=== PATIENT | female | born 2000 | race Two or more races ===

== ENCOUNTER 2025-03-10 06:40 | Emergency (ER) | payer OTHER, SELFPAY ==
[2025-03-10 06:42] VITALS: BMI 24.0
[2025-03-10 06:48] VITALS: BP 140/96; PULSE 73; RESP 16; TEMP 36.8; O2SAT 100
--- NOTE | 2025-03-10 06:56 | XR_ITS ---
Examination: CT brain head without contrast. 2-D sagittal coronal reconstructions Date and time of exam:March 10, 2025 0710 hours INDICATIONS: Onset of headache blurred vision beginning 2 hours ago CTDI: vol (mGy):47.9 DLP: (mGycm):879 Technique: Multiple CT axial sections of the brain have been obtained, 5 mm slice thickness. Contrast has not been administered. 2-D sagittal, coronal reconstructions have been obtained Low dose protocols were performed. One or more of the following dose reduction techniques were used; automated exposure control, adjustment of the mA and/or KV according to patient size, use of iterative reconstruction technique. Findings: No significant ventricular enlargement. Intra-axial or extra-axial hemorrhage density is not seen. No mass effect or midline shift Basal cisterns are not remarkable. Fourth ventricle is midline. Cranial vault intact. Impression: Negative for acute hemorrhage, mass effect or midline shift Advise clinical correlation and follow up accordingly
--- NOTE | 2025-03-10 07:50 | EDNOTE_ITS ---
ED Eye Problem RME/HPI General Chief complaint: Eye Problems Stated complaint: BLURRED VISION IN LEFT EYE Time Seen by Provider: 03/10/25 06:56 Arrival date/time: 03/10/25 06:40 24-year-old female presents emergency department today for an episode of blurry vision last night which has resolved spontaneously, patient reports no recent injury. Patient did report she had a headache yesterday which she reports was mild. Patient reports no fever no shortness of breath no disturbances in vision at this time Limitations: no limitations Related Data Previous Rx's ?Medication ?Instructions ?Recorded Amox Tr/Potassium Clavulanate 5 ml PO TID #150 mL 10/22 04/03 (Augmentin 250-62.5 Suspen) tramadol 50 mg tablet 50 mg PO BID PRN pain #15 ta bs 04/08/22 Allergies Allergy/AdvReac Type Severity Reaction Status Date / Time No Known Allergies Allergy Verified 03/10/25 06:42 Review of Systems Review of Systems Systems Reviewed: All systems reviewed, normal except as documented Constitutional Constitutional: Reports system reviewed and no additional complaints, except as documented, Denies fever(s) and Denies headache(s) Eyes Eyes: Reports system reviewed and no additional complaints, except as docume nted, Reports blurry vision (Episode of blurry vision has resolved), Denies irritation and Denies eye pain ENT Ears, Nose, Mouth, and Throat: Reports system reviewed and no additional complaints, except as documented, Denies headache(s), Denies nasal congestion and Denies nasal discharge Cardiovascular Cardiovascular: Reports system reviewed and no additional complaints, except as documented, Denies chest pain and Denies dyspnea Respiratory Respiratory: Reports system reviewed and no additional complaints, except as documented, Denies chest congestion, Denies cough and Denies dyspnea Gastrointestinal Gastrointestinal: Reports system reviewed and no additional complaints, except as documented and Denies abdominal pain Integumentary/Breasts Skin/Breast: Reports system reviewed and no additional complaints, except as documented and Denies rash Neurologic Neurologic: Reports system reviewed and no additional complaints, except as documented, Reports as per HPI and Denies headache(s) Past Medical History Past Medical History CARDIAC: Negative Congestive Heart Failure RESPIRATORY: Negative Chronic Obstructive Pulmonary Disease (COPD) GENITOURINARY: Negative Renal Disease ENDOCRINE: Negative Diabetes Mellitus Type 1 or Diabetes Mellitus Type 2 Social History SMOKING STATUS: Never smoker ED Exam General Limitations: Present no limitations General appearance: Present alert and in no apparent distress Head Head exam: Present atraumatic, normocephalic and normal inspection Eye Eye exam: Present normal appearance, PERRL and EOMI; Absent conjunctival injection ENT ENT exam: Present normal exam, normal oropharynx and mucous membranes moist Neck Neck exam: Present normal inspection, full ROM and trachea midline Chest Chest inspection: Present normal inspection and symmetric chest wall rise Respiratory Respiratory exam: Present normal lung sounds bilaterally; Absent respiratory distress Cardiovascular Cardiovascular exam: Present regular rate, normal rhythm and normal heart sounds Abdominal Exam Abdominal exam: Present soft and normal bowel sounds; Absent distention, tenderness, guarding, rebound or rigidity Extremities Exam Extremities exam: Present normal inspection and full ROM Back Exam Back exam: Present normal inspection and full ROM Neurological Exam Neurological exam: Present alert, oriented X3, CN II-XII intact, normal gait and reflexes normal; Absent motor sensory deficit Psychiatric Psychiatric exam: Present normal affect and normal mood Skin Skin exam: Present warm, dry, intact and normal color; Absent rash Course Quality Measures none Orders Category Date Time Status CT head/brain wo con Stat Exams 03/10/25 06:56 Completed Vital Signs Vital signs: Vital Signs Temperature 98.2 F 03/10/25 06:48 Pulse Rate 73 03/10/25 06:48 Respiratory Rate 16 03/10/25 06:48 Blood Pressure 140/96 H 03/10/25 06:48 Pulse Oximetry (%) 100 03/10/25 06:48 Oxygen Delivery Method Room Air 03/10/25 06:48 O2 saturation 100% room air within normal limits Eye MDM Narrative MDM Narrative:: 24-year-old female presents emergency department today for an episode of blurry vision last night which has resolved spontaneously, patient reports no recent injury. Patient did report she had a headache yesterday which she reports was mild. Patient reports no fever no shortness of breath no disturbances in vision at this time Imaging obtained no acute emergent findings noted Patient walks steady gait has no abnormal neurological findings Explained to the patient should symptoms persist or worsen she is to return for reevaluation possible MRI Patient discharged home in no distress to follow-up with primary care doctor in the next 24 to 48 hours and for any worsening symptoms to return to the ER immediately Patient data External records reviewed:: [facility] previous records Clinical information provided by:: patient Social determinants that could affect healthcare access:: none Patient has the following chronic illnesses:: none How is presenting disease/condition affected by chronic disease/condition?: no chronic disease Evaluation data The following diagnostics were reviewed and interpreted by me:: radiology exam(s) Lab and/or radiology exams considered but not ordered:: Radiology obtain Interpretation Summary: Reviewed by me Medications / Prescriptions Medications or Prescriptions considered but not ordered:: Given Medication administrations:: Given Consultations Consultation(s) initiated? (list below): No Diagnosis Eye Problem Differential Diagnosis: other Most likely diagnosis given after review of the tests above:: Headache Admission Indicated Admission indicated?: not indicated Admission Request Was there a request for admission?: No Disposition Plan Disposition Plan: Discharge Discharge Attestation Discharge Attestation: The patient and all family members were given an opportunity to ask questions and understood the discharge instructions. Discharge instructions specifically effects, indications for sooner follow up or return to the emergency department, and the expected course of current diagnosis. Patient condition: Stable Discharge Plan Plan Patient Disposition: HOME (Self Care) Discharge Disposition comment: Stable Prescriptions/Referrals Prescriptions/Med Rec: No Action Amox Tr/Potassium Clavulanate (Augmentin 250-62.5 Suspen) 150 ML SUSP.RECON 5 ml PO TID Qty: 150 0RF tramadol 50 mg tablet 50 mg PO BID PRN (Reason: pain) Qty: 15 0RF Problem List Clinical Impression: Blurred vision, left eye Patient/Caregiver Discharge Instructions Additional Instructions: Please follow up with your primary care doctor in the next 24-48hrs for any worsening symptoms return here immediately I would recommend you follow-up with eye doctor soon as possible if your symptoms persist or if they return return immediately Print Language: British Stand Alone Forms: Whitney Award Info., Patient Portal Info Letter PA/UNIT ASSISTANT Supervising Physician PA/MARTÍN Supervising Physician: Dr avilez
== END 2025-03-10 07:56 | disposition home or self-care (01) ==
LOC: SERX 08:01
PROVIDERS: Emergency Provider Emergency Medicine; PCP Pediatrics
DX: H53.8 Other visual disturbances (principal); R51.9 Headache, unspecified
CPT/HCPCS: 70450; 99284